=== PATIENT | female | born 1970 | race Caucasian/White ===

== ENCOUNTER 2025-05-31 06:10 | Day surgery (SDC) | payer BC ==
[2025-05-31] MEDS ORDERED: CEFAZOLIN SODIUM ONE (06:26)
[2025-05-31] MEDS ORDERED: MARCAINE 0.25% PF/ EPI 1:200,000 ONE (06:32)
[2025-05-31] MEDS: Lactated Ringers 1,000 ML IV SCH (06:35)
[2025-05-31] MEDS: TYLENOL EXTRA STRENGTH 500 MG PO ONE (06:36)
[2025-05-31] MEDS: NEURONTIN PO ONE (06:36)
[2025-05-31] MEDS: Decadron 4 MG PO ONE (06:36)
[2025-05-31] MEDS: celeBREX 100 MG PO ONE (06:36)
[2025-05-31 06:50] LABS: BASOPHIL % 0.5 % (0.1-1.2); Basophil (Absolute #) 0.05 x10^3/uL (0.01-0.08); Eosinophil (Absolute #) 0.19 x10^3/uL (0.04-0.36); Hematocrit 41.8 % (34.1-44.9); Hemoglobin 13.9 g/dL (11.2-15.7); IMMATURE GRAN # 0.04 x10^3u/L (0.001-0.031); IMMATURE GRAN % 0.4 % (0.001-0.429); Lymphocyte (Absolute #) 2.00 x10^3/uL (1.18-3.74); Mean Corpuscular Hemoglobin 30.3 pg (25.6-32.2); Mean Corpuscular Hgb Concent. 33.3 g/dL (32.2-35.5); Monocyte (Absolute #) 0.74 x10^3/uL (0.24-0.86); NUCLEATED RBC # 0.00 x10^3u/L (0.00-0.012); NUCLEATED RBC % 0.0 % (0.00-0.2); Platelet Count 225 x10^3/uL (182-369); Red Blood Count 4.59 x10^6/uL (3.93-5.22); White Blood Count 10.7 x10^3/uL (3.98-10.04)
[2025-05-31 06:54] VITALS: RESP 18
[2025-05-31 07:04] LABS: Calcium 9.1 mg/dL (8.4-10.2); Carbon Dioxide 26.0 mmol/L (22-30); Creatinine 1 0.64 mg/dL (0.52-1.04); EST GLOMERULAR FILTRATION RATE 103.7 ML/MIN; Glucose 108.0 mg/dL (74-106); Potassium 3.7 mmol/L (3.5-5.1)
[2025-05-31 07:30] LABS: SGOT/AST 29.0 U/L (14-36); SGPT/ALT 18.0 U/L (0-35); Total Protein 6.7 g/dL (6.3-8.2)
[2025-05-31] MEDS ORDERED: propofoL IV ONE (07:53)
[2025-05-31] MEDS ORDERED: Xylocaine-Mpf 2% 5 Ml Vial ONE (07:53)
[2025-05-31] MEDS ORDERED: ROCURONIUM BROMIDE IV ONE (07:53)
[2025-05-31] MEDS ORDERED: Zofran 4 MG/2 ML VIAL ONE ×2 (07:53→09:09)
[2025-05-31] MEDS ORDERED: SUBLIMAZE 100 MCG/2 ML ONE ×2 (07:54→09:22)
[2025-05-31] MEDS ORDERED: Pre-Attached Lta Kit TP ONE (08:00)
[2025-05-31] MEDS ORDERED: DEXMEDETOMIDINE 80 MCG/20ML-NS IV ONE (08:27)
[2025-05-31] MEDS ORDERED: TRANDATE 20 MG/4 ML SYRINGE IV ONE (08:31)
[2025-05-31] MEDS ORDERED: BRIDION 200MG/2ML IV ONE (08:40)
[2025-05-31] MEDS ORDERED: ROBINUL ONE (08:42)
[2025-05-31] MEDS ORDERED: DILAUDID 0.5 MG/0.5 ML SYRINGE ONE (09:22)
[2025-05-31 10:16] VITALS: O2SAT 99
[2025-05-31 10:35] VITALS: BP 114/63; PULSE 61; TEMP 96.2
--- NOTE | 2025-06-01 12:22 | OP ---
SURGERY DATE/TIME: 05/31/2025 [id number] PREOPERATIVE DIAGNOSIS: Left knee medial meniscus tear. POSTOPERATIVE DIAGNOSIS: Left knee medial meniscus tear. PROCEDURE: Left knee arthroscopy with partial medial meniscectomy. SURGEON: Stefan Ellis MD PAINTER SUPERVISOR: None. ANESTHESIA: General. ESTIMATED BLOOD LOSS: Minimal. COMPLICATIONS: None. INDICATIONS: The patient is a 55-year-old female who began to experience left knee pain about 7 months ago while she was exercising on a treadmill. She had an injection in the knee which helped for about a week. She presented with persistent medial knee pain as well as occasional catching. An MRI was obtained which revealed a medial meniscus tear as well as evidence of chondromalacia. We discussed options, and she wanted to proceed with left knee arthroscopy with partial medial meniscectomy and procedures as indicated. I explained risks associated with the procedure, including but not limited to infection, pain, bleeding, damage to surrounding structures, stiffness, limp, failure to improve pain, and need for further procedures. After explaining all risks, benefits, and alternative treatment options, she desired to proceed with surgery. DESCRIPTION OF PROCEDURE AND FINDINGS: The patient was taken to the operating room and placed in the supine position. IV antibiotics were administered, and general anesthesia was administered as well. A tourniquet was applied to the left upper thigh. The left lower extremity was then prepped and draped in the standard sterile fashion. The leg was then elevated and the tourniquet was inflated to 250 mmHg. An anterolateral portal was then created, and the arthroscope was inserted into the knee joint. An anteromedial portal was created as well. Examination of the patellofemoral joint revealed mild chondromalacia involving the undersurface of the patella. 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 There was some unstable cartilaginous edges and chondroplasty was performed using the mechanical shaver. Examination of the medial meniscus revealed a radial tear with a flap component. A combination of arthroscopic baskets and mechanical shaver were then used to perform partial medial meniscectomy. Following debridement, the meniscus was smooth and contoured. Examination of the notch revealed an intact ACL. Examination of the lateral compartment revealed minimal chondromalacia with intact lateral meniscus. The irrigant fluid was then drained and the portals were closed with 3-0 nylon sutures in a simple interrupted fashion. The knee joint was then injected with 0.25% Marcaine with epinephrine. A sterile dressing was then applied and the tourniquet was released. The patient was then awakened from anesthesia and taken to the recovery room in stable condition.
== END 2025-05-31 10:45 | disposition home or self-care (01) ==
LOC: SDC 06:10
PROVIDERS: ATTEND Orthopaedic Surgery
DX: S83.242A Other tear of medial meniscus, current injury, left knee, initial encounter (principal); I10 Essential (primary) hypertension